=== PATIENT | male | born 1985 | race Hispanic/Latino ===

== ENCOUNTER 2023-05-01 19:17 | Inpatient (IN) | payer OTHER ==
[~2023-05-01] VITALS: Ht 162.6 cm; Wt 90.6 kg
[2023-05-01 20:11] LABS: CREATINE KINASE, TOTAL 211 U/L (21-232)
[2023-05-01] MEDS ORDERED: 0.9%NACL 1000ML 1,000 ML IV ONE (21:00)
[2023-05-01] MEDS ORDERED: ASPIRIN 81MG CHEW TAB PO ONE (21:00)
[2023-05-01 21:14] LABS: APPEARANCE,URINE CLEAR (CLEAR); BILIRUBIN,URINE NEGATIVE (NEGATIVE); COLOR,URINE LIGHT-YELLOW (YELLOW); GLUCOSE, URINE (UA) NEGATIVE (NEGATIVE); KETONES,URINE NEGATIVE (NEGATIVE); LEUKOCYTE ESTERASE ,URINE NEGATIVE Leu/uL (NEGATIVE); NITRATE,URINE NEGATIVE (NEGATIVE); OCCULT BLOOD,URINE NEGATIVE (NEGATIVE); PROTEIN,URINE NEGATIVE (NEGATIVE); UROBILINOGEN,URINE 0.2 mg/dL (0.2-1.0)
[2023-05-01 21:14] LABS: CREATININE 0.9 mg/dL (0.5-1.5); POTASSIUM 3.7 mmol/L (3.5-5.1)
[2023-05-01 21:17] LABS: ADD UA MICROSCOPIC NO
[2023-05-01 21:19] LABS: AMPHET/METH SCREEN,URINE NEGATIVE (NEGATIVE); BARBITURATE SCREEN, URINE NEGATIVE (NEGATIVE); BENZODIAZEPINES SCREEN,URINE NEGATIVE (NEGATIVE); CANNABINOID SCREEN,URINE NEGATIVE (NEGATIVE); COCAINE SCREEN,URINE POSITIVE (NEGATIVE); OPIATE SCREEN,URINE NEGATIVE (NEGATIVE); PHENCYCLIDINE SCREEN,URINE NEGATIVE (NEGATIVE)
[2023-05-01 21:19] LABS: BASOPHILS # (AUTO) 0.04 K/uL (0.00-0.20); BASOPHILS % (AUTO) 0.5 % (0.0-5.0); EOSINOPHILS # (AUTO) 0.17 K/uL (0.00-0.70); EOSINOPHILS % (AUTO) 2.1 % (0.0-8.0); HEMATOCRIT 46.2 % (42-54); IMMATURE GRANULOCYTE ABSOLUTE 0.03 K/uL (0-1); LYMPHOCYTES # (AUTO) 2.8 K/uL (1.0-4.8); LYMPHOCYTES % (AUTO) 34.3 % (21.0-51.0); MEAN CORPUSCULAR HEMOGLOBIN 30.5 pg (27.0-33.0); MEAN CORPUSCULAR HGB CONC 33.8 g/dL (32.0-36.0); MEAN CORPUSCULAR VOLUME 90.2 fL (79-99); MONOCYTES # (AUTO) 0.9 K/uL (0.1-1.0); MONOCYTES % (AUTO) 10.9 % (3.0-13.0); NEUTROPHILS # (AUTO) 4.2 K/uL (1.8-7.7); NEUTROPHILS % (AUTO) 51.8 % (40.0-77.0); PLATELET COUNT (AUTO) 208 K/uL (130-400); RED BLOOD CELL COUNT(AUTO) 5.12 MIL/uL (4.50-6.20); RED CELL DISTRIBUTION WIDTH 13.2 % (11.0-15.5); WHITE BLOOD COUNT (AUTO) 8.1 K/uL (4.8-10.8)
[2023-05-01 21:25] LABS: ALBUMIN 3.6 g/dL (3.5-5.0); BILIRUBIN,TOTAL 0.2 mg/dL (0.2-1.0); TOTAL PROTEIN, SERUM 7.4 g/dL (6.0-8.3)
[2023-05-01 21:41] LABS: B-TYPE NATRIURETIC PEPTIDE < 5 pg/mL (0-100)
[2023-05-01 21:42] LABS: INR < 0.93 (0.85-1.15); PROTHROMBIN TIME 10.2 SEC (9.6-11.6)
[2023-05-01 21:43] LABS: PARTIAL THROMBOPLASTIN TIME 26.7 SEC (26.3-35.5)
[2023-05-01] MEDS ORDERED: HEPARIN 5,000 UNIT VIAL SQ PRN (22:00)
[2023-05-01] MEDS ORDERED: HEPARIN 25,000 UNITS/250ML D5W 250 ML IV SCH (22:00)
[2023-05-01] MEDS ORDERED: ASPI-1005 PO (22:41)
[2023-05-02] MEDS: NITROGLYCERIN 1GM OINT 1 INCH/1GM TD SCH ×3 (00:49→08:56)
[2023-05-02] MEDS ORDERED: ACETAMINOPHEN 325 MG TAB PO PRN ×2 (01:00)
[2023-05-02] MEDS ORDERED: MORPHINE 2 MG SYG IV PRN (01:00)
[2023-05-02] MEDS ORDERED: MORPHINE 4 MG SYG IV PRN (01:00)
[2023-05-02] MEDS ORDERED: ONDANSETRON 4MG INJ IV PRN (01:00)
[2023-05-02 07:26] LABS: BASOPHILS # (AUTO) 0.03 K/uL (0.00-0.20); BASOPHILS % (AUTO) 0.4 % (0.0-5.0); EOSINOPHILS # (AUTO) 0.21 K/uL (0.00-0.70); EOSINOPHILS % (AUTO) 2.7 % (0.0-8.0); IMMATURE GRANULOCYTE ABSOLUTE 0.02 K/uL (0-1); LYMPHOCYTES # (AUTO) 2.7 K/uL (1.0-4.8); LYMPHOCYTES % (AUTO) 34.1 % (21.0-51.0); MEAN CORPUSCULAR HEMOGLOBIN 30.8 pg (27.0-33.0); MEAN CORPUSCULAR HGB CONC 34.2 g/dL (32.0-36.0); MONOCYTES # (AUTO) 0.8 K/uL (0.1-1.0); MONOCYTES % (AUTO) 9.8 % (3.0-13.0); NEUTROPHILS # (AUTO) 4.1 K/uL (1.8-7.7); NEUTROPHILS % (AUTO) 52.7 % (40.0-77.0); PLATELET COUNT (AUTO) 185 K/uL (130-400); RED CELL DISTRIBUTION WIDTH 13.3 % (11.0-15.5); WHITE BLOOD COUNT (AUTO) 7.8 K/uL (4.8-10.8)
[2023-05-02 07:38] LABS: CREATININE 0.8 mg/dL (0.5-1.5)
[2023-05-02] MEDS ORDERED: OMEP20CA12 PO (07:58)
[2023-05-02 08:00] VITALS: BP 113/60; PULSE 55; RESP 18; O2SAT 99
[2023-05-02] MEDS: FAMOTIDINE 20MG TAB PO SCH ×2 (08:44→19:44)
[2023-05-02] MEDS: ENOXAPARIN SODIUM 40 MG/0.4 ML SYRINGE SQ SCH (08:45)
[2023-05-02 12:00] VITALS: BP 113/60; PULSE 64; RESP 17
[2023-05-02 13:20] VITALS: BP 108/79; PULSE 60; RESP 18
[2023-05-02 16:00] VITALS: BP_SYST 115; BP_SYST 116; BP_SYST 118; BP_DIAS 62; BP_DIAS 72; BP_DIAS 73; PULSE 59; PULSE 62; RESP 18
[2023-05-02 20:00] VITALS: BP 105/63; PULSE 60; RESP 17
[2023-05-02 23:50] VITALS: BP 115/68; PULSE 67; RESP 17
[2023-05-03] MEDS: NITROGLYCERIN 1GM OINT 1 INCH/1GM TD SCH ×2 (00:40→09:00)
[2023-05-03 04:00] VITALS: BP_SYST 102; BP_SYST 99; BP_DIAS 41; BP_DIAS 56; BP_DIAS 60; PULSE 58; RESP 17
[2023-05-03 08:00] VITALS: BP_SYST 103; BP_SYST 106; BP_SYST 110; BP_DIAS 59; BP_DIAS 64; BP_DIAS 66; PULSE 58; PULSE 63; PULSE 70; RESP 18; RESP 19
[2023-05-03] MEDS: FAMOTIDINE 20MG TAB PO SCH (09:20)
[2023-05-03] MEDS: ENOXAPARIN SODIUM 40 MG/0.4 ML SYRINGE SQ SCH (09:20)
[2023-05-03 09:36] VITALS: O2SAT 95
[2023-05-03 12:00] VITALS: BP 112/63; PULSE 51; RESP 18
[2023-05-03] MEDS ORDERED: CLOP-31 PO (15:14)
== END 2023-05-03 16:05 | disposition home or self-care (01) | DRG 918 ==
LOC: EDH 19:17 → EDHIP 19:18 → 4AH 05-02 13:20
PROVIDERS: ADMIT Internal Medicine; ATTEND Internal Medicine
DX: T40.5X1A Poisoning by cocaine, accidental (unintentional), initial encounter (principal); I24.89 Other forms of acute ischemic heart disease; F17.210 Nicotine dependence, cigarettes, uncomplicated; Y92.89 Other specified places as the place of occurrence of the external cause; Z82.49 Family history of ischemic heart disease and other diseases of the circulatory system; Z83.3 Family history of diabetes mellitus
CPT/HCPCS: 36415; 70551; 71045; 80048; 80053; 80305; 81003; 82550; 83735; 83880; 84100; 84484; 85025; 85378; 85610; 85730; 93005; G0378; J1644; J1650; J7030